=== PATIENT | female | born 1960 | race Caucasian/White ===

== ENCOUNTER 2016-07-26 07:34 | Day surgery (SDC) | payer BC ==
--- NOTE | 2016-07-26 07:21 | History and Physical Report ---
DATE: 07/26/2016. CHIEF COMPLAINT: This patient presents with a history of an intractable lumbar radiculitis. HISTORY OF PRESENT ILLNESS: Due to the failure of all therapies, a spinal cord stimulator trial was conducted with up to 75 to 90 percent pain control. Due to the failure of all other therapies and the success of the trial, she presents today for implant of a permanent system. PAST MEDICAL HISTORY: Breast cancer, mitral valve prolapse, peripheral neuropathy. PAST SURGICAL HISTORY: Podiatric surgery, hysterectomy, carpal tunnel release, breast surgery. MEDICATIONS ON ADMISSION: To be provided. ALLERGIES: None listed. SOCIAL HISTORY: Noncontributory. FAMILY HISTORY: Diabetes, cancer. REVIEW OF SYSTEMS: The patient is appropriate and in no acute distress. The remainder of the systems review shows glasses, headaches, neuropathy, bronchitis , peripheral edema, bladder dysfunction, fibromyalgia, and depression. PHYSICAL EXAMINATION: General: Height is 5 feet, 1 inch. Weight is 130 pounds. Vital Signs: Unavailable. HEENT: Within normal limits. Lungs: Clear. Heart: Regular rate and rhythm. Abdomen: Nontender. Musculoskeletal: Examination of the musculoskeletal system shows diffuse tenderness throughout the lumbar spine. Range of motion produces pain into both lower extremities. Ambulation: No assistive device utilized. Neurologic: Cranial nerves intact. IMPRESSION: LUMBAR RADICULITIS, ICD-10 CODE M54.16 AND M54.17. PLAN: The patient is here for implantation of a permanent spinal cord stimulator internal generator. The entire procedure and its risks, side effects , and complications have been carefully reviewed and discussed including nerve root injury, spinal cord injury, dural puncture, and headaches. Cullet Crusher information with CD Rom explaining all of the potential risks, side effects, and the procedure have been reviewed by the patient. The patient understands and consents. We will consider this procedure outpatient, although an overnight stay will be evaluated. NEHEMIAH OCHEN D.O. Date & Time JOB NUMBER: [id number] cc: Dr. Ailyn DUNHAM
[2016-07-26] MEDS ORDERED: ACETAMINOPHEN 325 MG TAB PO PRN ×2 (10:54)
[2016-07-26] MEDS ORDERED: DIPHENHYDRAMINE HCL 25 MG CAPSULE PO PRN ×2 (10:54)
[2016-07-26] MEDS ORDERED: METOCLOPRAMIDE HCL 10 MG/2 ML VIAL IVP PRN (10:54)
[2016-07-26] MEDS ORDERED: DIPHENHYDRAMINE HCL IV 50 MG/ML VIAL IVP PRN ×2 (10:54)
[2016-07-26] MEDS ORDERED: METOCLOPRAMIDE 10 MG TABLET PO PRN (10:54)
[2016-07-26] MEDS ORDERED: TEMAZEPAM 15 MG CAPSULE PO PRN ×2 (10:54)
[2016-07-26] MEDS ORDERED: AL HYDROX/MAG HYDROX 30ML UD PO PRN (10:54)
[2016-07-26] MEDS ORDERED: HYDROMORPHONE HCL 2 MG/ML VIAL IM PRN (10:54)
[2016-07-26] MEDS ORDERED: HYDROCODONE/APAP 7.5/325MG TABLET PO PRN ×2 (10:54)
[2016-07-26] MEDS ORDERED: SENNOSIDES/DOCUSATE SODIUM UD CAPSULE PO PRN ×2 (10:54)
[2016-07-26] MEDS ORDERED: HYDROMORPHONE HCL 1 MG/ML CPJ IM PRN (10:54)
[2016-07-26] MEDS ORDERED: OXYCODONE/APAP 10MG-325MG TABLET PO PRN ×2 (10:54)
[2016-07-26] MEDS ORDERED: CYCLOBENZAPRINE 10MG TABLET PO PRN (11:02)
[2016-07-26] MEDS ORDERED: DICYCLOMINE HCL 10 MG CAPSULE PO PRN (11:03)
[2016-07-26] MEDS ORDERED: BUTALB/ACETAMINOPHEN/CAFFEINE TABLET PO PRN (11:03)
[2016-07-26] MEDS: ACETAMINOPHEN 1,000 MG/100 ML BTL IV ONE (11:56)
[2016-07-26] MEDS: METOCLOPRAMIDE 10 MG TABLET PO ONE (11:56)
[2016-07-26] MEDS: CLINDAMYCIN 600MG/50ML PREMIX 600 MG/50 ML BAG IVPB ONE (11:56)
[2016-07-26] MEDS: FAMOTIDINE 20MG TABLET PO ONE (11:56)
[2016-07-26] MEDS: MECLIZINE 25 MG TABLET PO ONE (11:56)
[2016-07-26] MEDS ORDERED: LIDOCAINE 1% W/EPI 1:200,000 MPF 30ML SQ ONE (14:05)
[2016-07-26] MEDS ORDERED: OXYCODONE/APAP 10MG-325MG TABLET PO ONE (14:05)
[2016-07-26] MEDS ORDERED: BUPIVACAINE 0.5% W/EPI MPF 30 ML VIAL IVP ONE (14:05)
[2016-07-26] MEDS ORDERED: CLINDAMYCIN 600MG/4 ML VIAL IV ONE (14:05)
[2016-07-26] MEDS ORDERED: LIDOCAINE 2% MDV (20MG/ML) 20ML VIAL IV ONE (16:48)
[2016-07-26] MEDS ORDERED: PROPOFOL 10 MG/ML VIAL IV ONE (16:48)
[2016-07-26] MEDS ORDERED: HYDROMORPHONE HCL 2 MG/ML VIAL IV ONE (16:48)
[2016-07-26] MEDS ORDERED: FENTANYL PF 100MCG/2ML VIAL IV ONE (16:48)
[2016-07-26] MEDS ORDERED: MIDAZOLAM HCL 2MG/2ML VIAL IV ONE (16:48)
[2016-07-26] MEDS ORDERED: CLINDAMYCIN 600MG/50ML PREMIX 600 MG/50 ML BAG IVPB SCH (17:00)
[2016-07-26] MEDS ORDERED: AMITRIPTYLINE 25 MG TABLET PO SCH (22:00)
[2016-07-26] MEDS ORDERED: GABAPENTIN 300 MG CAPSULE PO SCH (22:00)
[2016-07-26] MEDS ORDERED: 0.9 % SODIUM CHLORIDE 10ML SYR IVP SCH (22:00)
--- NOTE | 2016-07-27 06:16 | Operative Note - Ferro ---
DATE OF SURGERY: 07/26/2016. PREOPERATIVE DIAGNOSIS: LUMBAR RADICULITIS, ICD-10 CODE M54.16 AND M54.17. POSTOPERATIVE DIAGNOSIS: LUMBAR RADICULITIS, ICD-10 CODE M54.16 AND M54.17. OPERATION: 1. FLUOROSCOPICALLY GUIDED EPIDURAL ACCESS, LEFT T12-L1. PLACEMENT OF SPINAL CORD STIMULATOR LEAD 1, A [employer] INFINION 16 WITH 6 ELECTRODES, POSITIONED LEFT T7. 2. COMPLEX PROGRAMMING OF LEAD 1 FOR 20 MINUTES. 3. FLUOROSCOPICALLY GUIDED EPIDURAL ACCESS, LEFT AT T11-12. PLACEMENT OF SPINAL CORD STIMULATOR LEAD 2, A [employer] INFINION 16 WITH 6 ELECTRODES , POSITIONED RIGHT T7. 4. COMPLEX PROGRAMMING OF LEAD 2 FOR 20 MINUTES. 5. INCISION, SUBCUTANEOUS DISSECTION, AND ANCHORING OF LEADS 1 AND 2 TO SUPRASPINOUS FASCIA USING A [employer] LOCKING ANCHOR. 6. INCISION, SUBCUTANEOUS DISSECTION, AND CREATION OF SUBCUTANEOUS POUCH AT LEFT POSTERIOR GLUTEAL MARGIN. PLACEMENT OF GENERATOR IDENTIFIED [employer] PROGRAMMABLE RECHARGEABLE. 7. TUNNELING BETWEEN POUCHES. PLACEMENT OF EXTERNAL PORTS FOR LEAD 1 AND LEAD 2 INTO GENERATOR POUCH, EACH LEAD INTERFACED TO A BIFURCATE EXTENSION. EACH BIFURCATE EXTENSION INTERFACED TO GENERATOR. 8. PLACEMENT OF GENERATOR INTO POUCH SECURING TO FASCIA WITH NONABSORBABLE SUTURE. PLACEMENT OF LEADS INTO POUCH. CLOSURE OF BOTH OF THE INCISIONS WITH VICRYL TO THE FASCIA AND RUNNING SUBCUTICULAR VICRYL TO THE SKIN. DERMABOND CLOSURE. 9. COMPLEX RECOVERY ROOM PROGRAMMING OF INTERNAL GENERATOR, HOME USE, TWO STIMULATORS FOR 20 MINUTES. SURGEON: Shane Vega D.O. ANESTHESIA: Local sedation. ANESTHESIA PROVIDER: Lazaro Begum CRNA. INDICATION: This patient presents with a history of intractable lumbar radiculitis. Due to the failure of all therapy and the success of a stimulator trial, she presents today for implantation of a permanent system. PROCEDURE: Intravenous line, vital sign monitoring, and IV sedation by Anesthesia. The patient was positioned prone. Sterile prep and sterile technique. Under imaging the skin at T11-12 and T12-L1 on the left was identified, marked, and infiltrated. With the use of two standard epidural needles with loss of resistance, the epidural space was accessed. At 12-1 spinal cord stimulator lead 1, a [employer] Infinion 16 with 6 electrodes , was positioned left at T7. Epidural access at T11-12, the spinal cord stimulator lead 2, a [employer] Infinion 16 with 6 electrodes, was positioned right at T7. Complex programming of lead 1 over 20 minutes followed by complex programming of lead 2 over 20 minutes. This ultimately resulted in patterns of stimulation across the back and into both legs. The patient indicated that we were in all of the areas of her pain. She was given the options to implant the system, continue to program, or remove. She opted to implant. Questions were repeated with the same response. The skin above and below both needles was infiltrated. An incision was made and subcutaneous dissection was conducted to the supraspinous fascia. Each lead was anchored to the supraspinous fascia using a [employer] Locking anchor with nonabsorbable suture. At the left posterior gluteal margin, a site picked by the patient for the generator, the skin was infiltrated. An incision was made and subcutaneous dissection was conducted to form a pouch of suitable size and depth for the generator. Antibiotic irrigation and Bovie for hemostasis. A tunneling tool was then used to carry the leads into the generator pouch. Each lead was then interfaced with the bifurcate extension. The bifurcate extensions were then interfaced to the generator. The generator was placed in the pouch and secured to the fascia with nonabsorbable suture. The leads were coiled and placed in the dural pouches. Both incisions were then closed with Vicryl to the fascia and running subcuticular Vicryl to the skin. A Dermabond closure was then used to approximate the edges of each of the incisions. She was transported to the recovery room stable, showing no side effects from the procedure or the sedation. In the recovery room when awake, complex programming was performed to re-establish stimulation and pain control. She was then transported to the floor where she will be monitored and then if stable discharged. Otherwise an overnight stay will be evaluated and provided. DISCHARGE INSTRUCTIONS: 1. The sites are to remain clean and dry. No showering or bathing in any way that would disrupt the dressings. Although the Dermabond does allow showering, she should not scrub the sites. 2. Standard medications to be resumed including an antibiotic which she will take for 10 to 14 days. If she does not tolerate the antibiotic she should contact the clinic. Other medications to be resumed. 3. The patient will be contacted at home and brought back into the office in five to seven days to evaluate the incisional sites. Until then, her activity level should stay relative low. Once the incisions are checked, she may be cleared for further activities. 4. All other instructions were provided including numbers to contact and possible problems were discussed. She will then be discharged and evaluated in the office. SHANE VEGA D.O. Date & Time JOB NUMBER: [id number] cc: Juan Kelly Dr.
[2016-07-27] MEDS ORDERED: PANTOPRAZOLE SODIUM 40 MG TABLET PO SCH (07:00)
[2016-07-27] MEDS ORDERED: GABAPENTIN 300 MG CAPSULE PO SCH (10:00)
[2016-07-27] MEDS ORDERED: METOPROLOL SUCC 50 MG TABLET PO SCH (10:00)
[2016-07-27] MEDS ORDERED: LISINOPRIL 10 MG TABLET PO SCH (10:00)
--- NOTE | 2016-07-27 13:50 | RADIOLOGY REPORT ---
EXAM: LUMBAR SPINE, SINGLE PORTABLE VIEW HISTORY: ELECTRONIC STIMULATOR LEAD PLACEMENT. TECHNIQUE: A single AP portable view of the lumbar spine was obtained. FINDINGS: A single AP portable view of the lumbar spine demonstrates degenerative disk disease of the lower lumbar spine. The bilateral pedicles and posterior spinous processes appear within normal limits. Degenerative changes of the sacroiliac joints are identified. There is an electronic stimulator identified in the region of the left gluteus. Lead tips are identified extending from the inferior end plate of the T7 vertebral body to the superior end plate of the T10 vertebral body. IMPRESSION: DEGENERATIVE DISK DISEASE OF THE LUMBAR SPINE IS NOTED DISCUSSED ABOVE. ELECTRONIC STIMULATOR LEADS ARE NOTED DESCRIBED ABOVE. JOB NUMBER: [id number] MTDD
== END 2016-07-26 12:35 | disposition home or self-care (01) ==
LOC: SUR 07:34 → MEDSURG 11:28 → SUR 12:35
PROVIDERS: ATTEND Pain Medicine Interventional Pain Medicine
DX: M54.16 Radiculopathy, lumbar region (principal); M54.17 Radiculopathy, lumbosacral region; I34.1 Nonrheumatic mitral (valve) prolapse; G62.9 Polyneuropathy, unspecified; Z85.3 Personal history of malignant neoplasm of breast
CPT/HCPCS: 95972; 72020; 63685; 63650 ×2; 00300; J3010; J1170

== ENCOUNTER 2017-09-05 07:55 | Day surgery (SDC) | payer BC ==
--- NOTE | 2017-09-05 06:41 | History and Physical Report ---
DATE: 09/04/2017. CHIEF COMPLAINT AND HISTORY OF CHIEF COMPLAINT: This patient presents with a history of an intractable cervical radiculitis. Due to the failure of therapy a spinal cord stimulator trial was conducted on 07/03/2017 with greater than 75 percent pain control. Due to the failure of all therapy and the success of the trial, she presents today for implantation of a permanent system. PAST MEDICAL HISTORY: Cancer, mitral valve prolapse, peripheral neuropathy. PAST SURGICAL HISTORY: Podiatric surgery, hysterectomy, carpal tunnel, breast surgery. MEDICATIONS ON ADMISSION: To be provided. ALLERGIES: None. SOCIAL HISTORY: Noncontributory. FAMILY HISTORY: Diabetes, cancer. REVIEW OF SYSTEMS: The patient is appropriate and in no acute distress. The remainder of the systems review shows glasses, headaches, peripheral neuropathy , bronchitis, peripheral edema, bladder dysfunction, fibromyalgia, depression. PHYSICAL EXAMINATION: General: Height and weight unavailable. Vital Signs: Not available. HEENT: Within normal limits. Lungs: Clear. Heart: Regular rate and rhythm. Abdomen: Nontender. Musculoskeletal: Examination of the musculoskeletal system shows diffuse tenderness throughout the cervical spine. Range of motion produces pain, numbness, weakness, and tingling into both upper extremities, across multiple distributions and dermatomes. Grasp and global consumer sector vice president strength are somewhat weakened. Sensory price are intact. Neurologic: Cranial nerves are intact. IMPRESSION: CERVICAL RADICULOPATHY, ICD-10 CODE M54.12. PLAN: The patient is here for implantation of a permanent cervical spinal cord stimulator based upon the failure of all therapies and the success of the trial. The procedure will be considered outpatient, although an overnight stay will be evaluated. The potential risks, side effects, and complications have all been carefully reviewed and discussed. Information provided by the staff trainer was given. Direct contact with a clinical specialist from the staff trainer has been provided. All other instructions were provided. JOB NUMBER: [id number] cc: Juan Kelly
[~2017-09-05 07:55] MED LIST: ACETAMINOPHEN 1,000 MG/100 ML BTL IV ONE; CLINDAMYCIN 600MG/50ML PREMIX 600 MG/50 ML BAG IVPB ONE; FAMOTIDINE 20MG TABLET PO ONE; MECLIZINE 25 MG TABLET PO ONE; METOCLOPRAMIDE 10 MG TABLET PO ONE
[2017-09-05] MEDS ORDERED: FENTANYL PF 100MCG/2ML VIAL IV ONE ×2 (07:56)
[2017-09-05] MEDS ORDERED: LIDOCAINE 1% W/EPI 1:200,000 MPF 30ML SQ ONE (07:56)
[2017-09-05] MEDS ORDERED: SCOPOLAMINE 1 PATCH TDSY TD ONE (07:56)
[2017-09-05] MEDS ORDERED: LIDOCAINE 1% MDV (10MG/ML) 20ML VIAL SQ ONE (07:56)
[2017-09-05] MEDS ORDERED: BUPIVACAINE 0.5% W/EPI MPF 30 ML VIAL IVP ONE (07:56)
[2017-09-05] MEDS ORDERED: PROPOFOL 10 MG/ML VIAL IV ONE (07:56)
[2017-09-05] MEDS ORDERED: OXYCODONE/APAP 10MG-325MG TABLET PO ONE (07:56)
[2017-09-05] MEDS ORDERED: *PACU ONLY* KETAMINE HCL 10 MG/ML (20ML) VIAL IV ONE (07:56)
[2017-09-05] MEDS ORDERED: MIDAZOLAM HCL 2MG/2ML VIAL IV ONE (07:56)
[2017-09-05] MEDS ORDERED: FLUMAZENIL 1MG/10ML VIAL IV ONE (07:56)
[2017-09-05] MEDS ORDERED: HYDROCODONE/APAP 7.5/325MG TABLET PO PRN ×2 (12:24)
[2017-09-05] MEDS ORDERED: OXYCODONE/APAP 10MG-325MG TABLET PO PRN ×2 (12:24)
--- NOTE | 2017-09-05 22:16 | Operative Note - Ferro ---
DATE OF SURGERY: 09/05/17 PRIMARY PHYSICIAN: DR. POSADA PREOPERATIVE DIAGNOSES: 1. INTRACTABLE CERVICAL RADICULOPATHY, ICD-10 CODE = M54.12. 2. LUMBAR SPINAL CORD STIMULATOR BATTERY CHANGE FOR IMPROVED STIMULATION. SURGERY: 1. FLUOROSCOPIC-GUIDED EPIDURAL ACCESS RIGHT T1-2. PLACEMENT OF SPINAL CORD STIMULATOR LEAD 1, A [employer] INFINION 16 WITH 6 ELECTRODES POSITIONED LEFT C2. 2. FLUOROSCOPIC-GUIDED EPIDURAL ACCESS RIGHT T2-3. PLACEMENT OF SPINAL CORD STIMULATOR LEAD 2, A [employer] INFINION 16 WITH 6 ELECTRODES POSITIONED RIGHT C2. 3. COMPLEX PROGRAMMING OF LEAD 1, OVER 20 MINUTES FOLLOWED BY COMPLEX PROGRAMMING OF LEAD 2, OVER 20 MINUTES. 4. INCISION, SUBCUTANEOUS DISSECTION, AND ANCHORING OF LEAD 1 AND LEAD 2 TO SUPRASPINOUS FASCIA WITH A [employer] LOCKING ANCHOR. 5. INCISION, SUBCUTANEOUS DISSECTION, AND CREATION OF POUCH RIGHT FLANK ABOVE THE BELT LINE. 6. TUNNELING BETWEEN POUCHES, PLACEMENT OF EXTERNAL PORTION OF LEAD 1 AND LEAD 2 INTO GENERATOR POUCH, EACH LEAD INTERFACED TO THE GENERATOR. 7. CLOSURE OF INCISIONS WITH VICRYL FOR FASCIA AND A STRATAFIX 3-0 FOR SUBCUTICULAR. 8. INCISION, SUBCUTANEOUS DISSECTION AND REMOVAL AND REPLACEMENT OF INTERNAL PULSE GENERATOR AT LEFT POSTERIOR GLUTEAL MARGIN LUMBAR STIMULATORS. 9. CLOSURE OF LUMBAR INCISION WITH STRATAFIX 2-0 FOR FASCIA, 3-0 SUBCUTICULAR CLOSURE. DERMABOND APPROXIMATING INCISIONS AT ALL SITES. 10. COMPLEX PROGRAMMING INTERNAL GENERATOR HOME USE, TWO STIMULATORS, RECOVERY ROOM, 20 MINUTES. SURGEON: NEHEMIAH COHEN D.O. ANESTHESIA: LOCAL SEDATION. ANESTHESIA PROVIDER: KOKO MARIE CRNA. INDICATIONS: This patient presents with a history of intractable cervical radiculopathy. Due to the failure of all therapies and the success of a stimulator trial, she presents today for implantation of a permanent system. She is also here for replacement of the generator for her lumbar system at the left posterior gluteal margin with marginal stimulation of patterns noted for the lumbar. She is here for replacement with WaveWriter generator technology to improve stimulation to the low back and legs. SURGERY: Intravenous line, vital sign monitoring, IV sedation, prepped and draped sterile technique, patient positioned prone. On the right in the cervical region at T1-2 and 2-3, skin infiltrated and then using standard epidural needles with loss of resistance into the space. At 1-2, spinal cord stimulator lead 1, a [employer] Infinion 16 with 6 electrodes positioned left at C2. With the Epidural access at T2-3 right using the same technique, spinal cord stimulator lead 2, a [employer] Infinion 16 with 6 electrodes positioned right at C2. Complex programming of lead 1 over 20 minutes followed by complex programming of lead 2 over 20 minutes resulting in complete patterns of stimulation across the neck and into the shoulders and arms. Patient indicating we are in all the areas of the pain. She was given the option to implant, continue to program, or remove; she opted to implant. Questions were repeated with the same response. She was then re-sedated. The skin above and below the needles infiltrated, incision made, and subcutaneous dissection was conducted to the supraspinous fascia. The needles were removed and then the leads were anchored to the supraspinous fascia with nonabsorbable suture and a [employer] locking anchor. At the right flank above the belt line, a site picked by the patient for the generator, skin infiltrated, incision made, and subcutaneous dissection was conducted to pouch, which was formed of suitable size and depth for the generator. After the leads were tunneled into the generator pouch, each lead was interfaced with the generator. Antibiotic irrigation and Bovie for hemostasis. The leads were then coiled into their pouch and the generator was placed into its own pouch and secured to the posterior fascia with a nonabsorbable suture and then the incisions were closed with a Vicryl for fascia and a STRATAFIX 3-0 subcuticular for skin. Dermabond closure placed. At the left posterior gluteal margin generator site for the lumbar stimulator, skin infiltrated, incision made, and subcutaneous dissection was conducted to the generator pouch. The generator was opened and removed from the leads and then a new generator, a WaveWriter, was placed onto the field. The WaveWriter generator was then interfaced with the indwelling leads. Antibiotic irrigation and Bovie for hemostasis. The incision was closed with a STRATAFIX 2-0 for fascia and 3-0 for skin. Dermabond closure. The patient was transported to the Recovery Room stable, no side effects from the procedure or the sedation. When fully awake and alert, she was programmed, reestablishing stimulation to all the appropriate areas and requesting to go home. DISCHARGE INSTRUCTIONS: 1. The sites are to remain clean and dry. No showering or bathing in any way that would disrupt the dressings, although the Dermabond will allow showing but she should not sit in water. 2. Standard medications will be resumed including the antibiotic, Levaquin 500 mg once a day for 14 days. 3. The office will contact the patient in the next 24 to 48 hours to set up an appointment in 7 to 10 days to evaluate the sites. Until then, activities should stay low. No bend, lift, push, pull. Once she is seen for the incisions, we will evaluate for further activities. All other instructions provided, numbers to contact if problems given. She was then discharged. cc: Dr. Julio Wise JOB NUMBER: [id number] MTDD
--- NOTE | 2017-09-07 23:40 | RADIOLOGY REPORT ---
EXAM: SPINE, 1 VIEW HISTORY: SPINAL CORD STIMULATOR IMPLANT. TECHNIQUE: Single frontal view including the cervical and thoracic spine. COMPARISON: Radiograph of the spine 07/26/2016. FINDINGS: Stimulator electrode again noted at the T7 through T10 level, likely similar from prior radiograph. Stimulator leads seen in the cervical region, proximal extent not well-defined due to overlapping anatomy; distal extent of electrode terminating near the approximate C6-C7 level. Partial visualization of an electrode at the lumbar region with the tip terminating proximally near the L1 level. Right axillary/chest wall surgical clips. IMPRESSION: ELECTRONIC STIMULATOR LEADS, DESCRIBED ABOVE. JOB NUMBER: [id number] MTDD
== END 2017-09-05 13:15 | disposition home or self-care (01) ==
LOC: SUR 07:55
PROVIDERS: ATTEND Pain Medicine Interventional Pain Medicine
DX: M54.12 Radiculopathy, cervical region (principal); I10 Essential (primary) hypertension; K58.9 Irritable bowel syndrome, unspecified; M79.7 Fibromyalgia
CPT/HCPCS: 63650; 63685; 01936; 72020; J3010; C1820; C1883